=== PATIENT | male | born 1950 | race Caucasian/White ===

== ENCOUNTER → 2016-07-25 | Emergency (ER) | payer OTHER ==
[~2016-07-25] VITALS: Ht 170.2 cm; Wt 71.0 kg
[~2016-07-25] MED LIST: BAYER CHILDREN'81 M1 PO; CEFTIN500 MG PO; EDLUAR5 MG SL; FLONASE16 G1 BOTH NARES; LOSARTAN POTAS100 MG PO; LOVASTATIN40 MG PO; MEDROL DOSEPAK4 MG PO; OMEPRAZOLE20 MG PO; PLAVIX75 MG PO; ROBITUSSIN AC,T10 ML PO; TOPROL XL50 MG PO; ULTRAM50 MG PO; ZITHROMAX500 MG PO; ZOSTAVAX V19400 UNIT SC; ZYRTEC10 M3 PO
[2016-07-25 13:02] LABS: INFLUENZA A VIRAL ANTIGEN NEGATIVE; INFLUENZA B VIRAL ANTIGEN NEGATIVE
[2016-07-25 14:24] VITALS: BP 172/94
== END | disposition home or self-care (01) ==
LOC: EME 12:07
DX: J06.9 Acute upper respiratory infection, unspecified (principal)
CPT/HCPCS: 71020; 87502; 87651 90; 99281; 99284

== ENCOUNTER 2016-07-28 14:53 | Emergency (ER) | payer OTHER ==
[~2016-07-28] VITALS: Ht 170.2 cm; Wt 75.2 kg
[~2016-07-28 14:53] MED LIST changes: -CEFTIN500 MG PO; -MEDROL DOSEPAK4 MG PO; -ROBITUSSIN AC,T10 ML PO; -ZITHROMAX500 MG PO; -ZYRTEC10 M3 PO
[2016-07-28 17:29] LABS: EOSINOPHIL (%) 0.8 % (0-5); EOSINOPHIL COUNT 0.1 K/uL (0-0.3); HEMATOCRIT 38.6 % (38.0-50.0); LYMPHOCYTE COUNT 1.4 K/uL (1.0-2.8); MCH 31.9 PG (29.0-34.0); MCHC 35.8 G/DL (30.0-36.0); MCV 89.4 FL (86-99); MEAN PLAT.VOLUME 10.9 uM^3 (9.0-12.4); MONOCYTE (%) 5.5 % (3-12); MONOCYTE COUNT 0.4 K/uL (0-0.8); NEUTROPHIL (%) 72.6 % (45-76); NEUTROPHIL COUNT 4.8 K/uL (1.8-6.4); PLATELET COUNT 138 K/uL (156-360); RBC DIS.WIDTH-CV 11.8 % (11.8-14.6); RBC DIS.WIDTH-SD 37.7 % (39-53); RED BLOOD COUNT 4.32 M/uL (4.00-5.50); WHITE BLOOD COUNT 6.6 K/uL (4.1-10.2)
[2016-07-28 17:37] LABS: CHLORIDE 104 mEq/L (99-109); POTASSIUM 3.6 mEq/L (3.7-5.4); SODIUM 137 mEq/L (136-147)
[2016-07-28 17:39] LABS: GLUCOSE 126 mg/dL (70-99)
[2016-07-28 17:40] LABS: ANION GAP 11 MEQ/L (2-14)
[2016-07-28 17:41] LABS: TOTAL BILIRUBIN 0.4 mg/dL (0.0-1.0)
[2016-07-28 17:43] LABS: ALKALINE PHOSPHATASE 87 IU/L (3-129); GFR ESTIMATE (CALCULATED) > 59 mL/min/
[2016-07-28 17:44] LABS: UREA NITROGEN (BUN) 14 mg/dL (9-23)
[2016-07-28] MEDS ORDERED: CEFTIN500 MG PO (17:51)
[2016-07-28] MEDS ORDERED: ZITHROMAX500 MG PO (17:51)
[2016-07-28] MEDS ORDERED: ROBITUSSIN AC,T10 ML PO (17:51)
[2016-07-28] MEDS ORDERED: ZYRTEC10 M3 PO (17:51)
[2016-07-28] MEDS ORDERED: MEDROL DOSEPAK4 MG PO (17:51)
[2016-07-28 19:59] VITALS: BP 131/92
== END 2016-07-28 20:04 | disposition home or self-care (01) ==
LOC: EME 14:53
PROVIDERS: Emergency Medicine
DX: J01.90 Acute sinusitis, unspecified (principal); J18.9 Pneumonia, unspecified organism; Z79.01 Long term (current) use of anticoagulants; Z95.1 Presence of aortocoronary bypass graft
CPT/HCPCS: 70486; 71020; 80053; 85025; 87040; 94640; 99281; 99285; J0456; J0692; J7050; J7512